=== PATIENT | female | born 1955 | race Caucasian/White ===

== ENCOUNTER 2018-01-01 00:15 | Outpatient (CLI) | payer MEDICAID, SELFPAY ==
[2018-01-01 10:52] LABS: Abs Immature Grans 0.02 k/cumm (0.0-0.09); Absolute Basophil Count 0.03 k/cumm (0.0-0.2); Absolute Eosinophil Count 0.08 k/cumm (0.0-0.7); Absolute Lymphocyte Count 0.98 k/cumm (1.2-3.4); Absolute Monocyte Count 0.49 k/cumm (0.11-0.7); Absolute Neutrophil Count 4.05 k/cumm (1.2-6.7); Basophils % 0.5; Eosinophils % 1.4; HCT 43.2 % (36.0-46.0); HGB 14.5 g/dL (12.0-15.5); Immature Grans % 0.4; Lymphocytes % 17.3; Mean Corp. HGB Concentration 33.6 g/dL (32.0-36.0); Mean Corpuscular Hemoglobin 29.4 pg (27.0-33.0); Mean Corpuscular Volume 87.6 fL (80-95); Mean Platelet Volume 9.7 fL (8.0-11.0); Monocytes % 8.7; Neutrophils % 71.7; Platelet Count 205 x1000/uL (130-400); RBC 4.93 m/cumm (4.00-5.20); RBC Distribution Width 13.6 % (11.7-14.6); White Blood Cell Count 5.65 k/cumm (4.4-10.8)
[2018-01-01 11:40] LABS: ALT 32 U/L (12-78); AST 18 U/L (15-37); Albumin 3.9 g/dL (3.4-5.0); Alkaline Phosphatase 74 U/L (46-116); Anion Gap 7.7 mmol/L (3-11); BUN 12 mg/dL (7-18); Bilirubin, Total 0.7 mg/dL (0.2-1.0); CO2 30.3 mmol/L (21.0-32.0); Chloride 100 mmol/L (98-107); Glucose 112 mg/dL (70-100); Potassium 4.4 mmol/L (3.5-5.1); Sodium 138 mmol/L (136-145); Total Protein 7.3 g/dL (6.4-8.2)
== END 2018-01-01 00:35 ==
PROVIDERS: PCP Nurse Practitioner Adult Health; Visit Provider Internal Medicine Medical Oncology
DX: C50.412 Malignant neoplasm of upper-outer quadrant of left female breast (principal); Z17.0 Estrogen receptor positive status [ER+]
CPT/HCPCS: 36415; 80053; 85025

== ENCOUNTER 2018-03-21 07:19 | Day surgery (SDC) | payer MEDICAID, SELFPAY ==
--- NOTE | 2018-03-21 06:53 | COLE_ITS ---
Date of service: 03/21/18 Time of Service: 09:39 Colonoscopy Report Date of procedure: 03/21/18 Pre-op diagnosis general: Colon Cancer screening Post-op diagnosis procedure note: other (severe sigmoid diverticulosis, transverse polyp) Procedure: Colonoscopy with polypectomy by cold forceps Surgeon: Ember Guevara Anesthesia proc note operative: MAC (Gianna Wynn, CERTIFIED APPLIANCE SERVICE TECHNICIAN / ASA 2) Estimated blood loss (mL): 3 Pathology: other (Transverse polyp) Complications: None Disposition: same day Indications: Mrs. Degroot is a pleasant 62-year-old female who was seen in the office for a colonoscopy. Her last colonoscopy was in 2005 and was normal. Risks, benefits, complications were reviewed with her and she wished to proceed. No guarantees were given or implied. Prep: Miralax/Dulcolax Procedure Start Time: :39 Procedure End Time: 10:08 Retraction Time: 17 minutes Findings: 1. One small sessile transverse polyp 2. Severe diverticulosis of sigmoid colon Procedure Description: After informed consent was obtained the patient was taken to the procedure room and placed in a left decubitous position. Monitors were applied and a time out was done. The patients name, date of , procedure, allergies to medications and metal in their body was reviewed. The patient was then sedated. Once sedated and comfortable a rectal exam was done. External exam was normal. Internal exam revealed a normal sphincter tone and no palpable masses. The scope was then introduced and retro-flexed. No internal hemorrhoids were identified. The scope was then advanced to the cecum without difficulty. The TI and appendiceal orifice were identified. The prep was adequate. The scope was then slowly retracted over 17 minutes back into the rectum. One sessile polyp was identified and removed with cold forceps in the transverse colon. Severe diverticulosis of the sigmoid colon was identified as well. The scope was removed and the patient was woken up and taken back to Same day surgery in stable condition. The patient tolerated the procedure well and there were no immediate complications. Follow up: The patient should follow up in 3-5 years unless they develop changes in bowel habits or other new gastrointestinal complaints.
--- NOTE | 2018-03-21 06:53 | PDOC.DSDIS_ITS ---
Discharge Plan Disposition Patient Disposition: HOME Condition: Good Discharge Details Reason For Visit: colon Cancer Screening Attending Provider: Ember Guevara Primary Care Provider: CHARLY CANELA Home Meds and New Rx's Prescriptions: Continue nystatin 100,000 unit/gram powder 1 applic TP TID PRNRF: 0 mupirocin 2 % ointment 1 applic TP TID PRNRF: 0 fluticasone [Flonase Allergy Relief] 50 mcg/actuation spray,suspension 2 spray XAVIER DAILY PRNRF: 0 letrozole 2.5 mg tablet 2.5 mg PO DAILY RF: 0 cholecalciferol (vitamin D3) 1,000 unit capsule 1,000 unit PO DAILY RF: 0 vitamin [id number] acid 1,000-400 mcg lozenge 1 shirley SL DAILY RF: 0 multivitamin,[id number] [Complete Multivitamin] tablet 1 tab PO DAILY RF: 0 aspirin [Adult Aspirin Regimen] 81 mg tablet,delayed release (DR/EC) 81 mg PO DAILY RF: 0 ascorbic acid (vitamin C) 100 mg tablet 100 mg PO DAILY RF: 0 omeprazole magnesium [Prilosec OTC] 20 mg tablet,delayed release (DR/EC) 20 mg PO DAILY RF: 0 amoxicillin 875 mg Tablet 875 mg PO BID RF: 0 acetaminophen [Tylenol] 325 mg Tablet 325 mg PO Q6H PRNRF: 0 ibuprofen 200 mg Tablet 200 mg PO QID PRNRF: 0 Discontinued bisacodyl [Dulcolax (bisacodyl)] 5 mg tablet,delayed release (DR/EC) 5 mg PO ONCE Qty: 4 RF: 0 polyethylene glycol 3350 17 gram/dose powder 255 g PO ONCE Qty: 255 RF: 0 Discharge Instructions Instructions: Colonoscopy (DC), Colorectal Polyps (DC), Diverticulosis (DC) Additional Instructions: Findings: 1. One polyp in the transverse colon 2. Diverticulosis Follow up: 3-5 years New medications: none Please call if you develop: fevers >101.5 Nausea or Vomiting Abdominal pain that is not transient DAY SURGERY UNIT POST COLONOSCOPY INSTRUCTIONS 1. Because there will be medication in your system for the next 24 hours, you may feel a little sleepy. Your coordination will be affected. Therefore: a. Do not drive or operate dangerous equipment for 24 hours. b. Do not drink alcohol beverages for 24 hours (not even beer). c. Plan to go home and rest for the day. 2. Generally there are no restrictions on your activity after a day or so has gone by, but you may feel a bit fatigued for a few days. 3 After you arrive home you may have a light meal and return to a normal diet as you can tolerate it without feeling sick to your stomach. 4. After surgery, you may feel pain or discomfort. This should be only transient , but if it persists please contact your doctor. 5. If there are any questions regarding the findings of your procedure, please feel free to contact your doctor. 6. If you are unable to contact your doctor with a problem, contact the hospital at [phone]. 7. Continue all your regular medications unless directed otherwise. I understand the above instructions and have no questions. Signature of Patient or Responsible Adult Escort Date/Time Name of Responsible Adult Escort Signature of Nurse Date/Time Activity:: Activity as Tolerated Diet:: high fiber diet Discharge Orders Discharge Orders: Discharge Order (Routine); Ordered 03/21/18 Ordered By: Ember Guevara DS: Diagnosis Discharge Diagnosis (1) S/P colonoscopy: Status: Acute (2) Colorectal polyp detected on colonoscopy: Status: Acute
[2018-03-21 07:43] VITALS: BP 146/82; PULSE 76; RESP 16; TEMP 36.4; O2SAT 98
[2018-03-21] MEDS: Lactated Ringers 1,000 ML 80 ML IV (08:15)
--- NOTE | 2018-03-21 10:00 | BOWEL_PTH ---
PATIENT: Aleisha Degroot LOC: [facility] U#:[id number] AGE/SX: 62/F ROOM: RE03/21/[address]: Ember Guevara MD : [id number] BED: DIS: 03/21/2018 SPEC #: [id number] RECD: 03/21/18 11:33 STATUS: LIVAN REQ #: [id number] MOISE: 03/21/18 10:[address]: Ember Guevara DEPT: Surgical Specimen RECD BY: Samnatha Chavez ENTERED: 03/21/18 11:34 SP TYPE: Bowel OTHR DR: Camille Thakkar Tissues: 1 - BIOPSY BOWEL Procedures: GROSS AND MICRO LEVEL 4 Comments: [id number]
[2018-03-21 10:37] VITALS: BP 136/71; PULSE 67; RESP 16; TEMP 37.5; O2SAT 100
== END 2018-03-21 11:30 | disposition home or self-care (01) ==
PROVIDERS: PCP Nurse Practitioner Adult Health; Visit Provider Surgery
PROC: 0DJD8ZZ Inspection of Lower Intestinal Tract, Via Natural or Artificial Opening Endoscopic (ICD-10-PCS; CPT 45378; principal; 2018-03-21 09:30)
DX: Z12.11 Encounter for screening for malignant neoplasm of colon (principal); D12.3 Benign neoplasm of transverse colon; K57.30 Diverticulosis of large intestine without perforation or abscess without bleeding; K21.9 Gastro-esophageal reflux disease without esophagitis
CPT/HCPCS: 45380; 88305

== ENCOUNTER 2018-05-16 15:25 | Outpatient (CLI) | payer MEDICAID, SELFPAY ==
[2018-05-16 16:07] LABS: Abs Immature Grans 0.03 k/cumm (0.0-0.09); Absolute Basophil Count 0.02 k/cumm (0.0-0.2); Absolute Lymphocyte Count 0.96 k/cumm (1.2-3.4); Absolute Monocyte Count 0.52 k/cumm (0.11-0.7); Absolute Neutrophil Count 7.43 k/cumm (1.2-6.7); Basophils % 0.2; Eosinophils % 1.1; HCT 42.5 % (36.0-46.0); HGB 14.7 g/dL (12.0-15.5); Immature Grans % 0.3; Lymphocytes % 10.6; Mean Corp. HGB Concentration 34.6 g/dL (32.0-36.0); Mean Corpuscular Hemoglobin 29.8 pg (27.0-33.0); Mean Platelet Volume 9.6 fL (8.0-11.0); Monocytes % 5.7; Neutrophils % 82.1; Platelet Count 216 x1000/uL (130-400); RBC 4.94 m/cumm (4.00-5.20); RBC Distribution Width 13.1 % (11.7-14.6); White Blood Cell Count 9.06 k/cumm (4.4-10.8)
[2018-05-16 16:22] LABS: ALT 33 U/L (12-78); AST 20 U/L (15-37); Albumin 3.8 g/dL (3.4-5.0); Alkaline Phosphatase 67 U/L (46-116); BUN 13 mg/dL (7-18); Bilirubin, Total 0.4 mg/dL (0.2-1.0); CREATININE 0.84 mg/dL (0.55-1.02); Calcium 8.5 mg/dL (8.5-10.1); Chloride 100 mmol/L (98-107); Glucose 125 mg/dL (70-100); Potassium 3.9 mmol/L (3.5-5.1); Sodium 138 mmol/L (136-145); Total Protein 7.6 g/dL (6.4-8.2)
== END 2018-05-16 15:45 ==
PROVIDERS: PCP Nurse Practitioner Adult Health; Visit Provider Internal Medicine Medical Oncology
DX: C50.412 Malignant neoplasm of upper-outer quadrant of left female breast (principal); Z17.0 Estrogen receptor positive status [ER+]
CPT/HCPCS: 36415; 80053; 85025

== ENCOUNTER 2018-07-06 12:19 | Outpatient (CLI) | payer MEDICAID, SELFPAY ==
[2018-07-06 16:20] LABS: Abs Immature Grans 0.02 k/cumm (0.0-0.09); Absolute Basophil Count 0.03 k/cumm (0.0-0.2); Absolute Eosinophil Count 0.15 k/cumm (0.0-0.7); Absolute Lymphocyte Count 1.42 k/cumm (1.2-3.4); Absolute Monocyte Count 0.58 k/cumm (0.11-0.7); Absolute Neutrophil Count 6.93 k/cumm (1.2-6.7); Basophils % 0.3; Eosinophils % 1.6; HCT 41.5 % (36.0-46.0); HGB 14.6 g/dL (12.0-15.5); Immature Grans % 0.2; Lymphocytes % 15.6; Mean Corp. HGB Concentration 35.2 g/dL (32.0-36.0); Mean Corpuscular Hemoglobin 30.5 pg (27.0-33.0); Mean Corpuscular Volume 86.6 fL (80-95); Mean Platelet Volume 9.5 fL (8.0-11.0); Monocytes % 6.4; Neutrophils % 75.9; Platelet Count 210 x1000/uL (130-400); RBC 4.79 m/cumm (4.00-5.20); White Blood Cell Count 9.13 k/cumm (4.4-10.8)
[2018-07-06 16:39] LABS: ALT 35 U/L (12-78); Albumin 3.8 g/dL (3.4-5.0); Alkaline Phosphatase 74 U/L (46-116); Anion Gap 12.3 mmol/L (3-11); BUN 11 mg/dL (7-18); Bilirubin, Total 0.4 mg/dL (0.2-1.0); CO2 21.7 mmol/L (21.0-32.0); CREATININE 0.78 mg/dL (0.55-1.02); Calcium 8.5 mg/dL (8.5-10.1); Chloride 101 mmol/L (98-107); Glucose 146 mg/dL (70-100); Sodium 135 mmol/L (136-145); Total Protein 7.4 g/dL (6.4-8.2)
[2018-07-06 17:00] LABS: AST 20 U/L (15-37)
[2018-07-08 11:25] LABS: Rheumatoid Factor 27 IU/mL (<12.5)
== END 2018-07-06 12:39 ==
PROVIDERS: PCP Nurse Practitioner Adult Health; Visit Provider Internal Medicine Medical Oncology
DX: M79.643 Pain in unspecified hand (principal); C50.412 Malignant neoplasm of upper-outer quadrant of left female breast; Z17.0 Estrogen receptor positive status [ER+]
CPT/HCPCS: 36415; 80053; 85025; 86431

== ENCOUNTER 2018-08-04 13:04 | Outpatient (CLI) | payer MEDICAID, SELFPAY ==
--- NOTE | 2018-08-04 12:28 | DI.RAD_ITS ---
SYMPTOMS/DIAGNOSIS: BREAST CA, NOW LEFT POSTERIOR CHEST WALL PAIN PA AND LATERAL CHEST: No previous chest film available for comparison. The heart is not enlarged. The lungs appear predominantly clear; however, there is a question of increased radiodensity projected over the left lung apex as compared to the right. The possibility of a mass or consolidation would have to be raised. No pleural effusion seen. CONCLUSION: Question left apical density. Chest CT requested for further evaluation.
== END 2018-08-04 13:24 ==
PROVIDERS: PCP Nurse Practitioner Adult Health; Visit Provider Nurse Practitioner
DX: R07.89 Other chest pain (principal); C50.412 Malignant neoplasm of upper-outer quadrant of left female breast; R91.1 Solitary pulmonary nodule
CPT/HCPCS: 71046

== ENCOUNTER 2018-08-12 02:22 | Outpatient (CLI) | payer MEDICAID, SELFPAY ==
[2018-08-12 12:31] LABS: CREATININE 0.86 mg/dL (0.55-1.02)
--- NOTE | 2018-08-12 13:00 | DI.CT_ITS ---
SYMPTOMS/DIAGNOSIS: LEFT BREAST CA STAGE II, C50.912, ABNORMAL CHEST X-RAY WITH DENSITY IN LEFT APEX CHEST CT: Comparison is made with chest x-ray dated July,, which showed an opacity in the left upper lobe. No other exams are available for comparison. Images were performed from the clavicles through the aortic bifurcation after IV contrast. There are no prior mammograms available. There are two markers in the left breast. There is an area of increased density in the region of the markers, which could represent postsurgical scarring. A mass could not be excluded on this exam. Correlation with mammography is recommended. The area measures 3.9 x 2.8 x 1.5 cm and is located in the lateral left breast. No adenopathy is seen. The heart size is normal. There is minimal aortic calcification. No pleural or pericardial effusions are seen. There are peripheral increased interstitial markings anteriorly in the left upper lobe adjacent to the chest wall consistent with radiation change. There is similar- appearing interstitial thickening at the left lung apex corresponding to the abnormality seen on chest x-ray. This could also represent radiation change. No rib erosions are seen. No lytic or blastic lesions are seen in the spine. Degenerative changes are noted, greater in the lumbar region. The liver shows a small area of low density superiorly and anteriorly in the left lobe. An enhancing lesion is seen posteriorly in the upper right lobe. The pancreas, adrenals and kidneys are unremarkable. Diverticulum is seen of the transverse portion of the duodenum. IMPRESSION: 1. Left breast mass versus scarring. 2. Areas of interstitial change in the left lung apex and left anterior chest are presumably secondary to previous radiation therapy. 3. Liver lesions. Comparison with previous exams should be performed if available. If there are no prior exams, further evaluation with MRI is suggested.
[2018-08-12] MEDS: Omnipaque 350 MG/ML 100 ML BTL IJ (13:31)
== END 2018-08-12 02:42 ==
PROVIDERS: PCP Nurse Practitioner Adult Health; Visit Provider Nurse Practitioner
DX: C50.412 Malignant neoplasm of upper-outer quadrant of left female breast (principal); Z17.0 Estrogen receptor positive status [ER+]; J98.4 Other disorders of lung; K76.9 Liver disease, unspecified
CPT/HCPCS: 71260; 82565; J3490

== ENCOUNTER 2019-01-19 12:17 | Outpatient (CLI) | payer MEDICARE, OTHER, SELFPAY ==
[2019-01-19 12:45] LABS: Abs Immature Grans 0.02 k/cumm (0.0-0.09); Absolute Basophil Count 0.02 k/cumm (0.0-0.2); Absolute Eosinophil Count 0.07 k/cumm (0.0-0.7); Absolute Lymphocyte Count 1.08 k/cumm (1.2-3.4); Absolute Monocyte Count 0.61 k/cumm (0.11-0.7); Absolute Neutrophil Count 5.85 k/cumm (1.2-6.7); Basophils % 0.3; Eosinophils % 0.9; HCT 42.5 % (36.0-46.0); HGB 14.4 g/dL (12.0-15.5); Immature Grans % 0.3; Lymphocytes % 14.1; Mean Corp. HGB Concentration 33.9 g/dL (32.0-36.0); Mean Corpuscular Hemoglobin 29.1 pg (27.0-33.0); Mean Corpuscular Volume 85.9 fL (80-95); Mean Platelet Volume 8.9 fL (8.0-11.0); Neutrophils % 76.4; Platelet Count 231 x1000/uL (130-400); RBC 4.95 m/cumm (4.00-5.20); RBC Distribution Width 13.3 % (11.7-14.6); White Blood Cell Count 7.65 k/cumm (4.4-10.8)
[2019-01-19 13:01] LABS: ALT 34 U/L (14-59); AST 20 U/L (15-37); Albumin 3.8 g/dL (3.4-5.0); Alkaline Phosphatase 78 U/L (46-116); Anion Gap 8.9 mmol/L (3-11); BUN 9 mg/dL (7-18); Bilirubin, Total 0.6 mg/dL (0.2-1.0); CO2 27.1 mmol/L (21.0-32.0); Calcium 8.3 mg/dL (8.5-10.1); Chloride 100 mmol/L (98-107); Glucose 101 mg/dL (70-100); Potassium 3.9 mmol/L (3.5-5.1); Sodium 136 mmol/L (136-145); Total Protein 7.6 g/dL (6.4-8.2)
== END 2019-01-19 12:37 ==
PROVIDERS: PCP Nurse Practitioner Adult Health; Visit Provider Nurse Practitioner Family
DX: C50.412 Malignant neoplasm of upper-outer quadrant of left female breast (principal); Z17.0 Estrogen receptor positive status [ER+]
CPT/HCPCS: 36415; 80053; 85025

== ENCOUNTER 2019-05-15 01:21 | Outpatient (CLI) | payer MEDICARE, OTHER, SELFPAY ==
--- NOTE | 2019-05-15 08:46 | ETT_ITS ---
APPROVED REPORT Exam: Exercise Treadmill Patient Location: Out-Patient Room/Bed: Stress Nurse: Janna Davis RN BMI: 35.44 Baseline Rhythm: Sinus. LAFB. Medical History Medical History: Fatigue Cardiac Medications: Letrozole. Aspirin., Allergies: Atorvastatin. Latex. Aspirin. Codeine. Lovastatin. Sulfamethoxazole. Trimethoprim. Cardiac Risk Factors: Hyperlipidemia, FHX of CAD, former smoker Pretest Chest Pain Characteristics: No chest pain Exercise History: Physically active Lung Sounds: Clear to auscultation Heart Sounds: Regular Stress Test Details Test: Exercise stress testing was performed using a Phoenix protocol. Rest Stress HR Resting HR: 81 bpm Max Heart Rate (APMHR): 155 bpm Resting HR Supine: 81 bpm Target HR (85% APMHR): 131 bpm Resting HR Standin bpm Max HR Achieved: 141 bpm % of APMHR: 90 Recovery HR: 83 bpm HR response to stress: Normal HR response to stress BP Resting BP: 164/96 mmHg Resting BP Supine: 156/90 mmHg Resting BP Standin/90 mmHg Max BP: 188/78 mmHg Recovery BP: 160/100 mmHg BP response to stress: Normal blood pressure response to stress. ECG Resting ECG: Sinus rhyth with a LAFB. ST Change: Normal Stress ECG: Sinus Tachycardia ST Change: No significant ST segment changes. Arrhythmia: Rare PVC. Recovery ECG: LAFB Recovery ST Change: No significant ST segment changes Recovery Arrhythmia: None Clinical Reason for Termination: Fatigue Stress Symptoms: General Fatigue Exercise duration: 4 min30 sec Highest Stage Achieved: Stage 1: 1.7 mph at 10% grade. Exercise capacity: 6.42 METs Functional Capacity: Mildly deminished capacity Stress ECG Conclusion 1. Patient exercised for 4 minutes and 30 seconds (6 METS). Exercise was stopped due to fatigue. 2. The patient reached 90% of her target heart rate with a rate pressure product of 24,000 3. There is no evidence of ischemia on the ECG portion of the exam. 4. The Anne Score (4) estimates an annual cardiovascular mortality of 1% and a five year survival of 94%. Using the Anne Score there is an intermediate probability of angiographic coronary disease. Protocol Used: Phoenix Protocol Stress Test Summary STAGE Time (mins) Speed (mph) Grade (%) HR BP SYMPTOMS METS Supine 81 164/96 Standing 80 156/90 1 3 1.7 10 135 170/88 4.6 2 6 2.5 12 7 3 9 3.4 14 10.2 4 12 4.2 16 12.9 5 15 5.0 18 17.2 1 min recovery 118 188/78 3 min recovery 86 150/90 6 min recovery 83 160/100
== END 2019-05-15 01:41 ==
PROVIDERS: PCP Nurse Practitioner Adult Health; Visit Provider Nurse Practitioner Adult Health
DX: R07.9 Chest pain, unspecified (principal); R94.31 Abnormal electrocardiogram [ECG] [EKG]; R53.83 Other fatigue; E78.5 Hyperlipidemia, unspecified; Z82.49 Family history of ischemic heart disease and other diseases of the circulatory system; Z87.891 Personal history of nicotine dependence
CPT/HCPCS: 93016; 93018; 93017

== ENCOUNTER 2019-09-29 04:07 | Outpatient (CLI) | payer MEDICARE, OTHER, SELFPAY ==
[2019-09-29 12:37] LABS: Abs Immature Grans 0.01 k/cumm (0.0-0.09); Absolute Basophil Count 0.01 k/cumm (0.0-0.2); Absolute Eosinophil Count 0.06 k/cumm (0.0-0.7); Absolute Lymphocyte Count 1.29 k/cumm (1.2-3.4); Absolute Monocyte Count 0.58 k/cumm (0.11-0.7); Absolute Neutrophil Count 7.25 k/cumm (1.2-6.7); Basophils % 0.1; Eosinophils % 0.7; HCT 43.5 % (36.0-46.0); HGB 14.8 g/dL (12.0-15.5); Immature Grans % 0.1 %; Mean Corpuscular Hemoglobin 29.3 pg (27.0-33.0); Mean Corpuscular Volume 86.1 fL (80-95); Mean Platelet Volume 9.6 fL (8.0-11.0); Monocytes % 6.3; Neutrophils % 78.8; Platelet Count 229 x1000/uL (130-400); RBC 5.05 m/cumm (4.00-5.20); RBC Distribution Width 13.2 % (11.7-14.6)
[2019-09-29 13:31] LABS: ALT 41 U/L (14-59); AST 22 U/L (15-37); Albumin 3.9 g/dL (3.4-5.0); Alkaline Phosphatase 81 U/L (46-116); Anion Gap 6.6 mmol/L (3-11); BUN 10 mg/dL (7-18); Bilirubin, Total 0.6 mg/dL (0.2-1.0); CO2 29.4 mmol/L (21.0-32.0); CREATININE 0.95 mg/dL (0.55-1.02); Calcium 8.7 mg/dL (8.5-10.1); Chloride 100 mmol/L (98-107); Estimated GFR 58.85 (mL/min/1.73m2); Glucose 104 mg/dL (74-106); Potassium 4.6 mmol/L (3.5-5.1); Sodium 136 mmol/L (136-145); Total Protein 7.1 g/dL (6.4-8.2)
== END 2019-09-29 04:27 ==
PROVIDERS: PCP Nurse Practitioner Adult Health; Visit Provider Nurse Practitioner Family
DX: C50.412 Malignant neoplasm of upper-outer quadrant of left female breast (principal); Z17.0 Estrogen receptor positive status [ER+]; C77.9 Secondary and unspecified malignant neoplasm of lymph node, unspecified
CPT/HCPCS: 36415; 80053; 85025

== ENCOUNTER 2020-04-03 00:17 | Outpatient (CLI) | payer MEDICARE, OTHER, SELFPAY ==
--- NOTE | 2020-04-03 10:07 | DI.RAD_ITS ---
EXAM: XR FOOT RT COMPLETE CLINICAL HISTORY: RHEUMATOID ARTHRITIS, PAIN, EVAL FOR INFLAMMATORY ARTHRITIS. TECHNIQUE: 2D digital imaging was performed. COMPARISON: No exams were available for comparison FINDINGS: No evidence of fracture no diastasis of the Lisfranc joint. No hallux valgus. No osseous lesions. Small calcification is noted in the plantar fascia just below the inferior calcaneus. Mild flattenin g head of the 2nd metatarsal is noted the oblique view. Degenerative subarticular cyst seen in the p roximal phalanx of the 2nd toe. No pes planus. IMPRESSION: Mild degenerative changes. No fracture evident DATA REPOSITORY: RADIATION DOSE DELIVERED:
--- NOTE | 2020-04-03 10:07 | DI.RAD_ITS ---
EXAM: XR FOOT LT COMPLETE CLINICAL HISTORY: RHEUMATOID ARTHRITIS, M06.9,CHRONIC PAIN, EVAL FOR INFLAMMATORY ARTHRITIS. TECHNIQUE: 2D digital imaging was performed. COMPARISON: CR XR FOOT RT COMPLETE from 04/03/2020 FINDINGS: There is no evidence of fracture nor diastasis of the Lisfranc joint.. No osseous lesions nor erosio ns. Accessory ossicle is noted lateral to the cuboid bone.. Small inferior calcaneal spur noted. N opes planus IMPRESSION: No significant radiographic findings. DATA REPOSITORY: RADIATION DOSE DELIVERED:
--- NOTE | 2020-04-03 10:30 | DI.DEXA_ITS ---
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 OSTEOPOROSIS TECHNIQUE: Routine DEXA evaluation of the lumbar spine, hip, or forearm. COMPARISON: No exams were available for comparison FINDINGS: Performed on a Hologic unit. Lateral film reveals no compression fractures Lumbar Spine total T-score: -0.5 Hip total T-score:0.0 Left femoral neck T-score is -1.0 IMPRESSION: Bone mineral density measures in the normal range. Fracture risk is low. Note: Any spine fracture indicates 5x risk for subsequent spine fracture and 2x risk for subsequent h ip fracture. World Health Organization criteria for BMD interpretation classify patients: Normal...... T- Score at or above -1.0 Osteopenic... T- Score between -1.0 and -2.5 Osteoporosis... T-Score at or below -2.5
--- NOTE | 2020-04-03 10:30 | DI.RAD_ITS ---
EXAM: XR ARTHRITIS SERIES CLINICAL HISTORY: RHEUMATOID ARTHRITIS, M06.9. TECHNIQUE: 2D digital imaging was performed. COMPARISON: No exams were available for comparison FINDINGS: Three views both hands including PA, lateral, Norgaard views with no previous for comparison. There is no evidence of fracture or subluxations. There are no abnormal soft tissue calcifications. No osseous lesions. No erosions. There are degenerative changes in the interphalangeal joints,, mo re prominent in the distal interphalangeal joints. Is identified generative subarticular cyst in the the in the head of the proximal phalanx of the 3rd-middle finger of the left hand. Most problem deg enerative changes are in the DIP joint of the index fingers, more so on of the right side. No obviou s degenerative changes at the 1st carpometacarpal joints. There are moderate degenerative changes at the metacarpophalangeal joints of both thumbs.. No erosions at the ulnar styloid levels. Carpal ro w bones appear unremarkable. 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 There are no erosions evident. DATA REPOSITORY: RADIATION DOSE DELIVERED:
== END 2020-04-03 00:37 ==
PROVIDERS: PCP Nurse Practitioner Adult Health; Visit Provider Internal Medicine Rheumatology
DX: M19.042 Primary osteoarthritis, left hand (principal); M19.041 Primary osteoarthritis, right hand; Z79.811 Long term (current) use of aromatase inhibitors; Z85.3 Personal history of malignant neoplasm of breast; M06.871 Other specified rheumatoid arthritis, right ankle and foot
CPT/HCPCS: 77080; 73120; 73630

== ENCOUNTER 2020-04-03 01:50 | Outpatient (CLI) | payer MEDICARE, OTHER, SELFPAY ==
[2020-04-03 10:38] LABS: Abs Immature Grans 0.04 10^3/uL (0.0-0.06); Absolute Basophil Count 0.04 10^3/uL (0.0-0.2); Absolute Lymphocyte Count 1.06 10^3/uL (1.2-3.4); Absolute Monocyte Count 0.56 10^3/uL (0.1-0.8); Absolute Neutrophil Count 5.67 10^3/uL (1.2-6.7); Basophils % 0.5; Eosinophils % 1.3; HGB 15.2 g/dL (11.2-15.7); Immature Grans % 0.5; Lymphocytes % 14.2; MCH 29.1 pg (27.0-33.0); MCV 88.1 fL (80-95); MPV 9.1 fL (8.0-11.0); Monocytes % 7.5; Nucleated RBC 0 %; Platelet Count 224 10^3/uL (130-400); RBC 5.22 10^6/uL (3.93-5.22); RDW 12.6 % (11.7-14.6); WBC 7.47 10^3/uL (4.4-10.8)
[2020-04-03 11:38] LABS: ESR 12 mm/hr (0-30)
[2020-04-03 12:13] LABS: ALT 41 U/L (14-59); AST 23 U/L (15-37); Alkaline Phosphatase 82 U/L (46-116); Anion Gap 5.9 mmol/L (3-11); BUN 7 mg/dL (7-18); Bilirubin, Total 0.5 mg/dL (0.2-1.0); C-Reactive Protein 0.25 mg/dL (0.0-0.3); CO2 28.1 mmol/L (21.0-32.0); CREATININE 0.92 mg/dL (0.55-1.02); Calcium 8.8 mg/dL (8.5-10.1); Chloride 102 mmol/L (98-107); Glucose 118 mg/dL (74-106); Potassium 4.1 mmol/L (3.5-5.1); Sodium 136 mmol/L (136-145); Total Protein 7.4 g/dL (6.4-8.2)
[2020-04-03 21:27] LABS: Rheumatoid Factor 22.6 IU/mL (<12.0)
[2020-04-04 10:01] LABS: Cyclic Citrullinated Peptide <2.5 U/mL (<5.0)
== END 2020-04-03 02:10 ==
PROVIDERS: Nurse Practitioner Family; PCP Nurse Practitioner Adult Health; Visit Provider Internal Medicine Hematology & Oncology
DX: M06.9 Rheumatoid arthritis, unspecified (principal); C50.912 Malignant neoplasm of unspecified site of left female breast; Z17.0 Estrogen receptor positive status [ER+]
CPT/HCPCS: 36415; 80053; 85652; 86200; 85025; 86140; 86431

== ENCOUNTER 2021-01-09 01:57 | Outpatient (CLI) | payer MEDICARE, OTHER, SELFPAY ==
[2021-01-09 12:33] LABS: Abs Immature Grans 0.04 10^3/uL (0.0-0.06); Absolute Basophil Count 0.04 10^3/uL (0.0-0.2); Absolute Eosinophil Count 0.05 10^3/uL (0.0-0.7); Absolute Lymphocyte Count 1.05 10^3/uL (1.2-3.4); Absolute Monocyte Count 0.59 10^3/uL (0.1-0.8); Absolute Neutrophil Count 7.06 10^3/uL (1.2-6.7); Basophils % 0.5; Eosinophils % 0.6; HCT 41.1 % (36.0-46.0); HGB 13.6 g/dL (11.2-15.7); Immature Grans % 0.5; Lymphocytes % 11.9; MCH 28.2 pg (27.0-33.0); MCHC 33.1 % (32.0-36.0); MCV 85.1 fL (80-95); MPV 9.3 fL (8.0-11.0); Monocytes % 6.7; Neutrophils % 79.8; Nucleated RBC 0 %; Platelet Count 248 10^3/uL (130-400); RBC 4.83 10^6/uL (3.93-5.22); RDW 12.6 % (11.7-14.6); RDW-SD 39.2 fL; WBC 8.83 10^3/uL (4.4-10.8)
[2021-01-09 12:47] LABS: ALT 35 U/L (14-59); AST 15 U/L (15-37); Albumin 3.7 g/dL (3.4-5.0); Alkaline Phosphatase 83 U/L (46-116); Anion Gap 8.1 mmol/L (3-11); BUN 8 mg/dL (7-18); Bilirubin, Total 0.5 mg/dL (0.2-1.0); CO2 28.9 mmol/L (21.0-32.0); CREATININE 0.7 mg/dL (0.55-1.02); Calcium 8.6 mg/dL (8.5-10.1); Chloride 97 mmol/L (98-107); Glucose 113 mg/dL (74-106); Potassium 4.2 mmol/L (3.5-5.1); Sodium 134 mmol/L (136-145); Total Protein 7.3 g/dL (6.4-8.2)
== END 2021-01-09 01:58 | disposition home or self-care (01) ==
PROVIDERS: PCP Nurse Practitioner Adult Health; Visit Provider Nurse Practitioner Family
DX: C50.412 Malignant neoplasm of upper-outer quadrant of left female breast (principal); Z17.0 Estrogen receptor positive status [ER+]
CPT/HCPCS: 36415; 80053; 85025